=== PATIENT | male | born 1965 | race Caucasian/White ===

== ENCOUNTER 2016-04-14 15:08 | Emergency (ER) | payer BC, OTHER ==
[2016-04-14 15:17] VITALS: TEMP 98.3
[2016-04-14] MEDS ORDERED: ONDANSETRON 4 MG/2 ML VIAL IVP STA (16:22)
[2016-04-14] MEDS ORDERED: HYDROmorphone 1 MG/ML 1 ML SYRINGE IVP STA (16:22)
[2016-04-14] MEDS ORDERED: SODIUM CHLORIDE 0.9% 1,000 ML IV STA (16:22)
[2016-04-14] MEDS ORDERED: FAMOTIDINE 20 MG/2 ML VIAL IV STA (16:23)
[2016-04-14 17:15] LABS: Basophils % (A) 0 %; CH 34.5; CHCM 36.1; Eosinophils % (A) 0 %; HCT 46.8 % (39.0-53.0); HGB 16.4 gm/dL (13.0-17.5); Luc # (Auto) 0.25; Luc % (Auto) 2; Lymphocytes # (A) 2.1 k/uL (1.0-4.8); Lymphocytes % (A) 18 %; MCH 33.6 pg (25.0-35.0); MCV 96.1 fL (80.0-100.0); Mean Platelet Volume 8.2; Monocytes # (A) 0.7 k/uL (0-1.0); Monocytes % (A) 6 %; Neutrophils # (A) 8.4 k/uL (1.3-7.7); Neutrophils % (A) 73 %; RBC 4.87 m/uL (4.30-5.90); RDW 12.7 % (11.5-15.5); WBC 11.5 k/uL (3.8-10.6); WBC (Perox) 11.59
[2016-04-14 17:24] LABS: INR 1.1 (<1.1); Partial Thromboplastin Time 22.5 sec (22.0-30.0); Prothrombin Time 11.2 sec (9.0-12.0)
[2016-04-14 17:26] LABS: ALT 51 U/L (21-72); AST 23 U/L (17-59); Alkaline Phosphatase 95 U/L (38-126); Amylase 36 U/L (30-110); Anion Gap 13 mmol/L; Blood Urea Nitrogen 16 mg/dL (9-20); Carbon Dioxide 23 mmol/L (22-30); Chloride 103 mmol/L (98-107); Glucose 112 mg/dL (74-99); Non-African American GFR(MDRD) >60 (>60 ml/min/1.73 sqM); Potassium 4.4 mmol/L (3.5-5.1); Sodium 139 mmol/L (137-145); Total Bilirubin 1.3 mg/dL (0.2-1.3); Total Protein 7.6 g/dL (6.3-8.2)
[2016-04-14 17:52] LABS: Amorphous Sediment,Urine Rare /hpf; Appearance,Urine Cloudy (Clear); Bilirubin,Urine Negative (Negative); Glucose,Urine (UA) Negative (Negative); Ketones,Urine 2+ (Negative); Leukocyte Esterase,Urine Negative (Negative); Mucus,Urine Rare /hpf; Nitrite,Urine Negative (Negative); Particle Count 22645; Protein,Urine Negative (Negative); RBC,Urine 6 /hpf (0-5); Specific Gravity,Urine 1.012 (1.001-1.035); UA Billing (MACRO vs. MICRO) MICRO; Urobilinogen,Urine <2.0 mg/dL (<2.0); WBC,Urine 1 /hpf (0-5)
--- NOTE | 2016-04-14 17:54 | XR ---
EXAMINATION TYPE: XR abdomen acute w cxr DATE OF EXAM: 04/14/2016 5:41 PM COMPARISON: 10/21/2014 HISTORY: Abdominal pain and vomiting TECHNIQUE: Single view of the chest and 2 views of the abdomen are submitted. FINDINGS: Heart and mediastinum are normal. Lungs are clear of infiltrate. Bowel gas pattern is normal. There i s no sign of intestinal obstruction or pneumoperitoneum. Fecal pattern is normal. There is no sign of a mass. There are no pathologic calcifications over the kidneys.. IMPRESSION: Normal chest. Nonacute abdomen. No change compared to 10/21/2014.
--- NOTE | 2016-04-14 19:16 | ED ---
Abdominal Pain HPI - General Chief Complaint: Abdominal Pain Stated Complaint: Abd Pain Time Seen by Provider: 04/14/16 16:12 Source: patient Mode of arrival: ambulatory Limitations: no limitations - History of Present Illness Initial Comments: This 50-year-old white male since with a complaint of some nausea as well as vomiting. He states that he's had some abdominal pain in the upper mid abdomen. He's had decreased intake as he states that his symptoms are worse when he eats. Symptoms have been present for last 3 days. He denies any diarrhea or fever. He denies any urinary symptoms. He does not utilize any alcohol but does have occasional Motrin. He denies any history of gas esophageal reflux disorder, gastritis, or peptic ulcer disease. He denies any diarrhea but has had occasional constipation. No other complaints or modifying factors. He did have one incident last year which is somewhat similar and he was diagnosed with pancreatitis of unknown cause. - Related Data Previous Rx's Medication Instructions Recorded Famotidine [Pepcid] 20 mg PO BID #20 tablet 04/14/16 Ondansetron [Zofran ODT] 8 mg PO Q8HR PRN #12 tab 04/14/16 traMADol HCl [Ultram] 50 - 100 mg PO Q6H PRN #15 tab 04/14/16 Allergies Allergy/AdvReac Type Severity Reaction Status Date / Time No Known Allergies Allergy Verified 04/14/16 16:09 Review of Systems ROS Statement: Those systems with pertinent positive or pertinent negative responses have been documented in the HPI. ROS Other: All systems not noted in ROS Statement are negative. Past Medical History Past Medical History: No Reported History Additional Past Medical History / Comment(s): vertigo History of Any Multi-Drug Resistant Organisms: None Reported Past Surgical History: No Surgical Hx Reported, Tonsillectomy Past Anesthesia/Blood Transfusion Reactions: No Reported Reaction, Motion Sickness Past Psychological History: No Psychological Hx Reported Smoking Status: Current every day smoker Past Alcohol Use History: None Reported Past Drug Use History: None Reported - Past Family History Father Additional Family Medical History / Comment(s): Father has MS General Exam - General Exam Comments Initial Comments: GENERAL: The patient is well nourished and well hydrated. VITAL SIGNS: Heart rate, blood pressure, respiratory rate reviewed as recorded in nurse's notes. EYES: Pupils are round and reactive. Extraocular movements are intact. No conjunctival / lid redness or swelling. ENT: No external evidence of injury, swelling, or ecchymosis. Airway is patent. Throat is clear. NECK: Nontender. No swelling or evidence of injury. No subcutaneous emphysema. Trachea is midline. No thyroid mass. HEART: Regular rate and rhythm. Good peripheral pulses. LUNGS/CHEST: Breath sounds clear and equal bilaterally. No rales, rhonchi, or wheezes. No ecchymosis, subcutaneous emphysema, or tenderness. ABDOMEN: There is some mild tenderness in the midepigastric region. No palpable masses or organomegaly. No peritoneal signs. No abdominal wall swelling or ecchymosis. EXTREMITIES: No extremity tenderness. Normal muscle tone and function. No thoracolumbar tenderness. NEUROLOGIC: Sensation is grossly intact. Cranial nerve exam reveals face is symmetrical, tongue is midline, speech is clear. SKIN: No abrasions or ecchymosis is noted. No induration or masses noted. PSYCHIATRIC: Alert and oriented. Appropriate behavior and judgment. Limitations: no limitations Course Vital Signs 04/14/16 15:15 Temperature 98.3 F Pulse Rate 78 Respiratory 16 Rate Blood Pressure 125/73 O2 Sat by Pulse 96 Oximetry Medical Decision Making - Medical Decision Making The patient was seen and examined. All diagnostics were reviewed. He received fluid hydration, IV antiemetics, and IV Dilaudid. He receives some IV Pepcid as well. He is feeling remarkably improved on recheck. The acute abdominal series x-ray does not show any acute abnormalities. The laboratory is all essentially within normal limits. There is some ketones in the urine. It is felt as though symptoms certainly could be related to a viral gastritis. The possibility of a gastritis or peptic ulcer disease certainly is possible as well. Is felt as though he stable for discharge. Diet therapy is discussed. Return parameters are discussed. - Lab Data Result diagrams: 04/14/16 17:00 04/14/16 17:00 Lab Results 04/14/16 04/14/16 04/14/16 Range/Units 17:00 17:00 17:00 WBC 11.5 H (3.8-10.6) k/uL RBC 4.87 (4.30-5.90) m/uL Hgb 16.4 (13.0-17.5) gm/dL Hct 46.8 (39.0-53.0) % MCV 96.1 (80.0-100.0) fL MCH 33.6 (25.0-35.0) pg MCHC 35.0 (31.0-37.0) g/dL RDW 12.7 (11.5-15.5) % Plt Count 193 (150-450) k/uL Neutrophils % 73 % Lymphocytes % 18 % Monocytes % 6 % Eosinophils % 0 % Basophils % 0 % Neutrophils # 8.4 H (1.3-7.7) k/uL Lymphocytes # 2.1 (1.0-4.8) k/uL Monocytes # 0.7 (0-1.0) k/uL Eosinophils # 0.0 (0-0.7) k/uL Basophils # 0.0 (0-0.2) k/uL PT 11.2 (9.0-12.0) sec INR 1.1 (<1.1) APTT 22.5 (22.0-30.0) sec Sodium 139 (137-145) mmol/L Potassium 4.4 (3.5-5.1) mmol/L Chloride 103 (98-107) mmol/L Carbon Dioxide 23 (22-30) mmol/L Anion Gap 13 mmol/L BUN 16 (9-20) mg/dL Creatinine 0.81 (0.66-1.25) mg/dL Est GFR (MDRD) Af Amer >60 (>60 ml/min/1.73 sqM) Est GFR (MDRD) Non-Af >60 (>60 ml/min/1.73 sqM) Glucose 112 H (74-99) mg/dL Calcium 10.0 (8.4-10.2) mg/dL Total Bilirubin 1.3 (0.2-1.3) mg/dL AST 23 (17-59) U/L ALT 51 (21-72) U/L Alkaline Phosphatase 95 (38-126) U/L Total Protein 7.6 (6.3-8.2) g/dL Albumin 4.6 (3.5-5.0) g/dL Amylase 36 (30-110) U/L Lipase 26 (23-300) U/L Urine Color Urine Appearance (Clear) Urine pH (5.0-8.0) Ur Specific [place] (1.001-1.035) Urine Protein (Negative) Urine Glucose (UA) (Negative) Urine Ketones (Negative) Urine Blood (Negative) Urine Nitrate (Negative) Urine Bilirubin (Negative) Urine Urobilinogen (<2.0) mg/dL Ur Leukocyte Esterase (Negative) Urine RBC (0-5) /hpf Urine WBC (0-5) /hpf Amorphous Sediment (None) /hpf Urine Mucus (None) /hpf 04/14/16 Range/Units 17:30 WBC (3.8-10.6) k/uL RBC (4.30-5.90) m/uL Hgb (13.0-17.5) gm/dL Hct (39.0-53.0) % MCV (80.0-100.0) fL MCH (25.0-35.0) pg MCHC (31.0-37.0) g/dL RDW (11.5-15.5) % Plt Count (150-450) k/uL Neutrophils % % Lymphocytes % % Monocytes % % Eosinophils % % Basophils % % Neutrophils # (1.3-7.7) k/uL Lymphocytes # (1.0-4.8) k/uL Monocytes # (0-1.0) k/uL Eosinophils # (0-0.7) k/uL Basophils # (0-0.2) k/uL PT (9.0-12.0) sec INR (<1.1) APTT (22.0-30.0) sec Sodium (137-145) mmol/L Potassium (3.5-5.1) mmol/L Chloride (98-107) mmol/L Carbon Dioxide (22-30) mmol/L Anion Gap mmol/L BUN (9-20) mg/dL Creatinine (0.66-1.25) mg/dL Est GFR (MDRD) Af Amer (>60 ml/min/1.73 sqM) Est GFR (MDRD) Non-Af (>60 ml/min/1.73 sqM) Glucose (74-99) mg/dL Calcium (8.4-10.2) mg/dL Total Bilirubin (0.2-1.3) mg/dL AST (17-59) U/L ALT (21-72) U/L Alkaline Phosphatase (38-126) U/L Total Protein (6.3-8.2) g/dL Albumin (3.5-5.0) g/dL Amylase (30-110) U/L Lipase (23-300) U/L Urine Color Yellow Urine Appearance Cloudy (Clear) Urine pH 7.0 (5.0-8.0) Ur Specific [place] 1.012 (1.001-1.035) Urine Protein Negative (Negative) Urine Glucose (UA) Negative (Negative) Urine Ketones 2+ H (Negative) Urine Blood Small H (Negative) Urine Nitrate Negative (Negative) Urine Bilirubin Negative (Negative) Urine Urobilinogen <2.0 (<2.0) mg/dL Ur Leukocyte Esterase Negative (Negative) Urine RBC 6 H (0-5) /hpf Urine WBC 1 (0-5) /hpf Amorphous Sediment Rare H (None) /hpf Urine Mucus Rare H (None) /hpf Disposition Clinical Impression: Abdominal pain, Nausea and vomiting, Viral gastritis, Dehydration Disposition: HOME SELF-CARE Condition: Good Instructions: Abdominal Pain (ED), Dehydration (ED), Acute Nausea and Vomiting (ED) Additional Instructions: Please avoid any Motrin in the future. You may utilize Tylenol safely. Prescriptions: Famotidine [Pepcid] 20 mg PO BID #20 tablet Ondansetron [Zofran ODT] 8 mg PO Q8HR PRN #12 tab PRN Reason: Nausea traMADol HCl [Ultram] 50 - 100 mg PO Q6H PRN #15 tab PRN Reason: Pain Referrals: None,Stated [Primary Care Provider] - 1-2 days Time of Disposition: 19:15
[2016-04-14 19:45] VITALS: BP 117/66; PULSE 77; RESP 18
== END 2016-04-14 19:48 | disposition home or self-care (01) ==
LOC: EC 15:08
DX: A08.4 Viral intestinal infection, unspecified (principal); E86.0 Dehydration; F17.200 Nicotine dependence, unspecified, uncomplicated
CPT/HCPCS: 99284; 96374; 96375; 96361; 36415; 93005; 80053; 82150; 83690; 85025; 85610; 85730; 81001; 74022; J2405; J1170

== ENCOUNTER 2016-11-27 18:24 | Emergency (ER) | payer BC, OTHER ==
[2016-11-27 18:44] VITALS: RESP 18
[2016-11-27] MEDS ORDERED: HYDROmorphone 1 MG/ML 1 ML SYRINGE IVP STA (19:33)
[2016-11-27] MEDS ORDERED: PANTOPRAZOLE 40 MG/10 ML VIAL IVP STA (19:33)
[2016-11-27] MEDS ORDERED: METOCLOPRAMIDE 5 MG/ML 2 ML VIAL IVP STA (19:33)
[2016-11-27] MEDS ORDERED: SODIUM CHLORIDE 0.9% 1,000 ML IV STA (19:33)
--- NOTE | 2016-11-27 19:40 | ED ---
General Adult HPI - General Source: patient, RN notes reviewed, old records reviewed Mode of arrival: ambulatory Limitations: no limitations <Charli Rodríguez - Last Filed: 11/27/16 19:35> <Juan Diego Swain - Last Filed: 11/27/16 21:57> - General Chief complaint: Abdominal Pain Stated complaint: abdominal pain/vomiting Time Seen by Provider: 11/27/16 19:23 - History of Present Illness Initial comments: If complaint history of present illness this is a 51-year-old male to complaint of epigastric pain for 3 days. Nausea vomiting once today no blood in the vomit no bowel habit problems. No change in bowel habits no dark stool. (Charli Rodríguez) - Related Data Home Medications Medication Instructions Recorded Confirmed No Known Home Medications [No 11/27/16 11/27/16 Known Home Medications] Allergies Allergy/AdvReac Type Severity Reaction Status Date / Time No Known Allergies Allergy Verified 11/27/16 19:45 Review of Systems ROS Other: All systems not noted in ROS Statement are negative. <Charli Rodríguez - Last Filed: 11/27/16 19:35> ROS Other: All systems not noted in ROS Statement are negative. <Juan Diego Swain - Last Filed: 11/27/16 21:57> ROS Statement: Those systems with pertinent positive or pertinent negative responses have been documented in the HPI. Review of systems. No headache or visual acuity changes no chest pain shortness of breath. The pain comes and goes the epigastric region. Patient has had one history of pancreatitis of unknown cause. Also gastritis and several occasions. No back pain no significant change in appetite. Eating sometimes helps eating some placement worse. No neuro deficits. All systems are reviewed. Past medical problems pancreatitis and viral gastritis. Surgeries tonsillectomy. Family history no cancers. Father at MS. Patient denies ALLERGIES she does smoke strongly encouraged to stop denies alcohol use. (Charli Rodríguez) Past Medical History Past Medical History: No Reported History Additional Past Medical History / Comment(s): vertigo pancreatitis History of Any Multi-Drug Resistant Organisms: None Reported Past Surgical History: Tonsillectomy Past Anesthesia/Blood Transfusion Reactions: No Reported Reaction, Motion Sickness Past Psychological History: No Psychological Hx Reported Smoking Status: Current every day smoker Past Alcohol Use History: None Reported Past Drug Use History: None Reported - Past Family History Father Additional Family Medical History / Comment(s): Father has MS <Charli Rodríguez - Last Filed: 11/27/16 19:35> General Exam Limitations: no limitations <Charli Rodríguez - Last Filed: 11/27/16 19:35> <Juan Diego Swain - Last Filed: 11/27/16 21:57> - General Exam Comments Initial Comments: General: The patient is awake and alert, patient has on-again off-again epigastric pain. Vital signs temp 99.5 pulse 70 respiratory rate 18 pulse ox 98% room air blood pressure 122/75 Eye: Pupils are equal, round and reactive to light, extra-ocular movements are intact ; there is normal conjunctiva bilaterally. No signs of icterus. Ears, nose, mouth and throat: There are moist mucous membranes and no oral lesions. Neck: The neck is supple, there is no tenderness, no anterior cervical lymphadenopathy , thyroid not enlarged. Cardiovascular: There is a regular rate and rhythm. No murmur, rub or gallop is appreciated. Respiratory: Lungs are clear to auscultation, respirations are non-labored, breath sounds are equal. No wheezes, stridor, rales, or rhonchi. Gastrointestinal: Abdomen: Mildly tender to deep palpation no rebound or referred pain negative Goel sign. Normal active bowel sounds. No masses no organomegaly. Back: There is no tenderness to palpation in the midline. There is no obvious deformity. No rashes noted. Musculoskeletal: Normal ROM, no tenderness, There is no pedal edema. There is no calf tenderness or swelling. Sensation intact. Pulses equal bilaterally 2+. Neurological: No neuro deficits. Skin is warm and dry and no rashes or lesions are noted. (MarcosCharli monroy) Medical Decision Making <Charli Rodríguez - Last Filed: 11/27/16 19:35> - Lab Data Result diagrams: 11/27/16 20:23 11/27/16 20:23 - Radiology Data Radiology results: image reviewed (Abdominal x-ray shows no acute process) <Juan Diego Swain - Last Filed: 11/27/16 21:57> - Medical Decision Making Patient reexamined by myself, Dr. Swain. Patient resting comfortably in bed and symptom-free. Abdomen is soft and nontender. Patient is updated on results. Patient is also updated and limitations of tests provided. Patient offered computed tomography scan however refuses. Patient is agreeable to return if symptoms worsen. Patient states he has had similar symptoms previously associated with gastritis. (Juan Diego Swain) - Lab Data Lab Results 11/27/16 11/27/16 11/27/16 Range/Units 20:23 20:23 20:23 WBC 9.9 (3.8-10.6) k/uL RBC 4.70 (4.30-5.90) m/uL Hgb 16.1 (13.0-17.5) gm/dL Hct 46.6 (39.0-53.0) % MCV 99.2 (80.0-100.0) fL MCH 34.2 (25.0-35.0) pg MCHC 34.5 (31.0-37.0) g/dL RDW 13.4 (11.5-15.5) % Plt Count 186 (150-450) k/uL Neutrophils % 71 % Lymphocytes % 21 % Monocytes % 6 % Eosinophils % 0 % Basophils % 0 % Neutrophils # 7.0 (1.3-7.7) k/uL Lymphocytes # 2.1 (1.0-4.8) k/uL Monocytes # 0.6 (0-1.0) k/uL Eosinophils # 0.0 (0-0.7) k/uL Basophils # 0.0 (0-0.2) k/uL Sodium 137 (137-145) mmol/L Potassium 4.1 (3.5-5.1) mmol/L Chloride 103 (98-107) mmol/L Carbon Dioxide 28 (22-30) mmol/L Anion Gap 6 mmol/L BUN 8 L (9-20) mg/dL Creatinine 0.88 (0.66-1.25) mg/dL Est GFR (MDRD) Af Amer >60 (>60 ml/min/1.73 sqM) Est GFR (MDRD) Non-Af >60 (>60 ml/min/1.73 sqM) Glucose 107 H (74-99) mg/dL Plasma Lactic Acid Saeed 0.9 (0.7-2.0) mmol/L Calcium 9.7 (8.4-10.2) mg/dL Total Bilirubin 0.9 (0.2-1.3) mg/dL AST 17 (17-59) U/L ALT 25 (21-72) U/L Alkaline Phosphatase 90 (38-126) U/L Total Protein 7.0 (6.3-8.2) g/dL Albumin 4.0 (3.5-5.0) g/dL Amylase <30 L (30-110) U/L Lipase 25 (23-300) U/L Urine Color Urine Appearance (Clear) Urine pH (5.0-8.0) Ur Specific [place] (1.001-1.035) Urine Protein (Negative) Urine Glucose (UA) (Negative) Urine Ketones (Negative) Urine Blood (Negative) Urine Nitrite (Negative) Urine Bilirubin (Negative) Urine Urobilinogen (<2.0) mg/dL Ur Leukocyte Esterase (Negative) Urine RBC (0-5) /hpf Amorphous Sediment (None) /hpf Urine Bacteria (None) /hpf Urine Yeast (Budding) (None) /hpf 11/27/16 Range/Units 21:08 WBC (3.8-10.6) k/uL RBC (4.30-5.90) m/uL Hgb (13.0-17.5) gm/dL Hct (39.0-53.0) % MCV (80.0-100.0) fL MCH (25.0-35.0) pg MCHC (31.0-37.0) g/dL RDW (11.5-15.5) % Plt Count (150-450) k/uL Neutrophils % % Lymphocytes % % Monocytes % % Eosinophils % % Basophils % % Neutrophils # (1.3-7.7) k/uL Lymphocytes # (1.0-4.8) k/uL Monocytes # (0-1.0) k/uL Eosinophils # (0-0.7) k/uL Basophils # (0-0.2) k/uL Sodium (137-145) mmol/L Potassium (3.5-5.1) mmol/L Chloride (98-107) mmol/L Carbon Dioxide (22-30) mmol/L Anion Gap mmol/L BUN (9-20) mg/dL Creatinine (0.66-1.25) mg/dL Est GFR (MDRD) Af Amer (>60 ml/min/1.73 sqM) Est GFR (MDRD) Non-Af (>60 ml/min/1.73 sqM) Glucose (74-99) mg/dL Plasma Lactic Acid Saeed (0.7-2.0) mmol/L Calcium (8.4-10.2) mg/dL Total Bilirubin (0.2-1.3) mg/dL AST (17-59) U/L ALT (21-72) U/L Alkaline Phosphatase (38-126) U/L Total Protein (6.3-8.2) g/dL Albumin (3.5-5.0) g/dL Amylase (30-110) U/L Lipase (23-300) U/L Urine Color Yellow Urine Appearance Cloudy (Clear) Urine pH 7.0 (5.0-8.0) Ur Specific [place] 1.006 (1.001-1.035) Urine Protein Negative (Negative) Urine Glucose (UA) Negative (Negative) Urine Ketones Negative (Negative) Urine Blood Trace H (Negative) Urine Nitrite Negative (Negative) Urine Bilirubin Negative (Negative) Urine Urobilinogen <2.0 (<2.0) mg/dL Ur Leukocyte Esterase Negative (Negative) Urine RBC 4 (0-5) /hpf Amorphous Sediment Rare H (None) /hpf Urine Bacteria Rare H (None) /hpf Urine Yeast (Budding) Few H (None) /hpf Disposition <Charli Rodríguez - Last Filed: 11/27/16 19:35> Time of Disposition: 21:57 <Juan Diego Swain - Last Filed: 11/27/16 21:57> Clinical Impression: Abdominal pain Disposition: HOME SELF-CARE Condition: Stable Instructions: Abdominal Pain (ED) Additional Instructions: Please follow-up with primary care physician in the beginning of the week. Return for fever, increased pain, vomiting, worsening or changing symptoms or other concerns. Take [id number] Pepcid Referrals: Rosi Delatorre MD [STAFF PHYSICIAN] - 1-2 days
[2016-11-27 20:35] LABS: Basophils % (A) 0 %; CH 35.1; CHCM 35.6; Eosinophils % (A) 0 %; HCT 46.6 % (39.0-53.0); HDW 2.33; HGB 16.1 gm/dL (13.0-17.5); Luc # (Auto) 0.17; Luc % (Auto) 2; Lymphocytes # (A) 2.1 k/uL (1.0-4.8); Lymphocytes % (A) 21 %; MCH 34.2 pg (25.0-35.0); MCHC 34.5 g/dL (31.0-37.0); MCV 99.2 fL (80.0-100.0); Mean Platelet Volume 8.6; Monocytes # (A) 0.6 k/uL (0-1.0); Monocytes % (A) 6 %; Neutrophils % (A) 71 %; RDW 13.4 % (11.5-15.5); WBC 9.9 k/uL (3.8-10.6); WBC (Perox) 9.46
[2016-11-27 20:48] LABS: ALT 25 U/L (21-72); AST 17 U/L (17-59); Alkaline Phosphatase 90 U/L (38-126); Amylase <30 U/L (30-110); Anion Gap 6 mmol/L; Blood Urea Nitrogen 8 mg/dL (9-20); Calcium 9.7 mg/dL (8.4-10.2); Carbon Dioxide 28 mmol/L (22-30); Chloride 103 mmol/L (98-107); Glucose 107 mg/dL (74-99); Non-African American GFR(MDRD) >60 (>60 ml/min/1.73 sqM); Potassium 4.1 mmol/L (3.5-5.1); Sodium 137 mmol/L (137-145); Total Bilirubin 0.9 mg/dL (0.2-1.3)
--- NOTE | 2016-11-27 20:51 | XR ---
EXAMINATION TYPE: XR abdomen 2V DATE OF EXAM: 11/27/2016 COMPARISON: 04/13/2015 HISTORY: Right upper quadrant pain TECHNIQUE: 3 views FINDINGS: There is no sign of intestinal obstruction or pneumoperitoneum. Fecal pattern is normal. Suri ng bases are clear. There are no pathologic calcifications over the kidneys. IMPRESSION: Nonacute abdomen. No change.
[2016-11-27 21:23] LABS: Amorphous Sediment,Urine Rare /hpf; Appearance,Urine Cloudy (Clear); Bacteria,Urine Rare /hpf; Bilirubin,Urine Negative (Negative); Glucose,Urine (UA) Negative (Negative); Ketones,Urine Negative (Negative); Leukocyte Esterase,Urine Negative (Negative); Nitrite,Urine Negative (Negative); Particle Count 11047; Protein,Urine Negative (Negative); RBC,Urine 4 /hpf (0-5); Specific Gravity,Urine 1.006 (1.001-1.035); UA Billing (MACRO vs. MICRO) MICRO; Urobilinogen,Urine <2.0 mg/dL (<2.0)
[2016-11-27 22:10] VITALS: BP 116/68; PULSE 66; TEMP 98.1
== END 2016-11-27 22:18 | disposition home or self-care (01) ==
LOC: EC 18:24
DX: R10.13 Epigastric pain (principal); R11.2 Nausea with vomiting, unspecified; F17.200 Nicotine dependence, unspecified, uncomplicated
CPT/HCPCS: 36415; 80053; 82150; 83605; 83690; 85025; 81001; 87086; 74020; 99284; 96374; 96375 ×2; 96361 ×2; J2765; J1170; C9113

== ENCOUNTER 2017-11-29 05:58 | Emergency (ER) | payer BC, OTHER ==
[2017-11-29 06:05] VITALS: BP 128/83; PULSE 61; RESP 18; TEMP 98
--- NOTE | 2017-11-29 06:14 | ED ---
ENT HPI - General Chief complaint: ENT Stated complaint: ear ache Time Seen by Provider: 11/29/17 06:06 Source: patient, RN notes reviewed Mode of arrival: ambulatory Limitations: no limitations - History of Present Illness Initial comments: 52-year-old male presents emergency Department chief complaint of ear pain, mild dizziness. Patient states he suffered with ear problems and vertigo. Patient states it started after working on his truck last night when he had to lay underneath of it. Patient states that he has no symptoms other than when he moves he states he gets very mild dizziness he states is exactly what he had in the past. Patient complains of mild pressure in his left ear pain when he puts his earplugs in his right ear. Patient has no headache no blurred vision no focal deficits, nausea, vomiting, diarrhea constipation. He denies any chest pain or shortness of breath. Patient states he was able drive himself to emergency department with no difficulty he states he more notices it when he leans forward. Patient has mild sinus congestion. - Related Data Previous Rx's Medication Instructions Recorded Amoxicillin 875 mg PO Q12HR #14 tablet 11/29/17 Meclizine [Antivert] 25 mg PO TID PRN #15 tab 11/29/17 Allergies Allergy/AdvReac Type Severity Reaction Status Date / Time No Known Allergies Allergy Verified 11/27/16 19:45 Review of Systems ROS Statement: Those systems with pertinent positive or pertinent negative responses have been documented in the HPI. ROS Other: All systems not noted in ROS Statement are negative. Past Medical History Past Medical History: No Reported History Additional Past Medical History / Comment(s): vertigo pancreatitis History of Any Multi-Drug Resistant Organisms: None Reported Past Surgical History: Tonsillectomy Past Anesthesia/Blood Transfusion Reactions: No Reported Reaction, Motion Sickness Past Psychological History: No Psychological Hx Reported Smoking Status: Current every day smoker Past Alcohol Use History: None Reported Past Drug Use History: None Reported - Past Family History Father Additional Family Medical History / Comment(s): Father has MS General Exam Limitations: no limitations General appearance: alert, in no apparent distress Head exam: Present: atraumatic, normocephalic, normal inspection Eye exam: Present: normal appearance, PERRL, EOMI. Absent: scleral icterus, conjunctival injection, periorbital swelling ENT exam: Present: normal oropharynx, mucous membranes moist, normal external ear exam. Absent: TM's normal bilaterally (Mild erythema on the left, mild fluid noted on the right) Neck exam: Present: normal inspection, full ROM. Absent: tenderness, meningismus, lymphadenopathy Respiratory exam: Present: normal lung sounds bilaterally. Absent: respiratory distress, wheezes, rales, rhonchi, stridor Cardiovascular Exam: Present: regular rate, normal rhythm, normal heart sounds. Absent: systolic murmur, diastolic murmur, rubs, gallop, clicks Neurological exam: Present: alert, oriented X3, CN II-XII intact, reflexes normal, other (Finger to nose intact bilaterally without shooting.). Absent: motor sensory deficit Skin exam: Present: warm, dry, intact, normal color. Absent: rash Course Vital Signs 11/29/17 06:01 Temperature 98.0 F Pulse Rate 61 Respiratory 18 Rate Blood Pressure 128/83 O2 Sat by Pulse 98 Oximetry Medical Decision Making - Medical Decision Making 52-year-old male presents emergency from for ear pain and mild dizziness. Patient does have mild otitis media on the left he does have some fluid noted. Patient is exhibiting mild vertigo symptoms in which he has suffered in the past. I did offer further workup secondary to the dizziness patient declines lab work, EKG. Patient will be started on oxacillin, Antivert. He is advised to follow-up with his PCP in 24 hours and return for any worsening symptoms. Disposition Clinical Impression: Otitis media, Vertigo Disposition: HOME SELF-CARE Condition: Stable Instructions: Earache (ED), Vertigo (ED) Additional Instructions: Please return to the Emergency Department if symptoms worsen or any other concerns. Prescriptions: Amoxicillin 875 mg PO Q12HR #14 tablet Meclizine [Antivert] 25 mg PO TID PRN #15 tab PRN Reason: Vertigo Is patient prescribed a controlled substance at d/c from ED?: No Referrals: Rosi Delatorre MD [STAFF PHYSICIAN] - 1-2 days Time of Disposition: 06:14
== END 2017-11-29 06:22 | disposition home or self-care (01) ==
LOC: EC 05:58
DX: H66.92 Otitis media, unspecified, left ear (principal); R42 Dizziness and giddiness; F17.200 Nicotine dependence, unspecified, uncomplicated
CPT/HCPCS: 99282

== ENCOUNTER 2020-08-30 07:02 | Emergency (ER) | payer BC, OTHER ==
[2020-08-30 07:08] VITALS: RESP 18
[2020-08-30] MEDS ORDERED: ONDANSETRON 4 MG/2 ML VIAL IVP STA (07:20)
[2020-08-30] MEDS ORDERED: KETOROLAC 15 MG/ML 1 ML VIAL IVP STA (07:20)
[2020-08-30] MEDS ORDERED: SODIUM CHLORIDE 0.9% 1,000 ML IV STA ×2 (07:20)
--- NOTE | 2020-08-30 07:24 | ED ---
Abdominal Pain HPI - General Chief Complaint: Abdominal Pain Stated Complaint: Abd pain Time Seen by Provider: 08/30/20 07:10 Source: patient, RN notes reviewed Mode of arrival: ambulatory Limitations: no limitations - History of Present Illness Initial Comments: This is a 54-year-old male with a history he believes pancreatitis in the past he smokes but does not drink alcohol who states he's had 3-4 days of upper abdominal pain dull in nature -10/12 severity fairly constant with decreased oral intake background nausea no vomiting. He denies any shortness of breath pain does seem to get worse somewhat when he eats he states. No prior history of surgeries on his abdomen no family history of gallbladder disease or ulcers. It. He has noticed decreased urine output is darker. Other complaints or modifying factors MD Complaint: abdominal pain - Related Data Previous Rx's Medication Instructions Recorded Pantoprazole Sodium [Protonix] 40 mg PO DAILY #14 tablet. 08/30/20 Allergies Allergy/AdvReac Type Severity Reaction Status Date / Time No Known Allergies Allergy Verified 08/30/20 08:24 Review of Systems ROS Statement: Those systems with pertinent positive or pertinent negative responses have been documented in the HPI. ROS Other: All systems not noted in ROS Statement are negative. Past Medical History Past Medical History: No Reported History Additional Past Medical History / Comment(s): vertigo pancreatitis History of Any Multi-Drug Resistant Organisms: None Reported Past Surgical History: Tonsillectomy Past Anesthesia/Blood Transfusion Reactions: No Reported Reaction, Motion Sickness Past Psychological History: No Psychological Hx Reported Smoking Status: Current every day smoker Past Alcohol Use History: None Reported Past Drug Use History: None Reported - Past Family History Father Additional Family Medical History / Comment(s): Father has MS General Exam - General Exam Comments Initial Comments: This is a well-developed sec appearing male who is awake and oriented 3 Limitations: no limitations General appearance: alert, in no apparent distress Head exam: Present: atraumatic, normocephalic, normal inspection Eye exam: Present: normal appearance, PERRL, EOMI. Absent: scleral icterus, conjunctival injection, periorbital swelling ENT exam: Present: mucous membranes dry Neck exam: Present: normal inspection. Absent: tenderness, meningismus, lymphadenopathy Respiratory exam: Present: normal lung sounds bilaterally. Absent: respiratory distress, wheezes, rales, rhonchi, stridor Cardiovascular Exam: Present: regular rate, normal rhythm, normal heart sounds. Absent: systolic murmur, diastolic murmur, rubs, gallop, clicks GI/Abdominal exam: Present: soft, tenderness (Right upper quadrant and epigastric tenderness palpation no guarding rebound masses or bruits), normal bowel sounds. Absent: distended, guarding, rebound, rigid Rectal exam: Present: deferred Extremities exam: Present: normal inspection, full ROM, normal capillary refill. Absent: tenderness, pedal edema, joint swelling, calf tenderness Back exam: Present: normal inspection Neurological exam: Present: alert, oriented X3, CN II-XII intact Psychiatric exam: Present: normal affect, normal mood Skin exam: Present: warm, dry, intact, normal color. Absent: rash Course Vital Signs 08/30/20 07:03 Temperature 97.8 F Pulse Rate 61 Respiratory 18 Rate Blood Pressure 155/89 O2 Sat by Pulse 99 Oximetry Medical Decision Making - Medical Decision Making I did discuss the findings with the patient is feeling improved the presentation consistent with a gastritis be placed on Protonix he is also to be referred to GI. He does not have a primary care doctor did suggest he establish 1. - Lab Data Result diagrams: 08/30/20 07:41 08/30/20 07:41 Lab Results 08/30/20 08/30/20 08/30/20 Range/Units 07:41 07:41 07:41 WBC 8.1 (3.8-10.6) k/uL RBC 4.69 (4.30-5.90) m/uL Hgb 16.3 (13.0-17.5) gm/dL Hct 46.0 (39.0-53.0) % MCV 98.0 (80.0-100.0) fL MCH 34.7 (25.0-35.0) pg MCHC 35.4 (31.0-37.0) g/dL RDW 12.3 (11.5-15.5) % Plt Count 180 (150-450) k/uL MPV 7.7 Neutrophils % 71 % Lymphocytes % 20 % Monocytes % 6 % Eosinophils % 1 % Basophils % 1 % Neutrophils # 5.8 (1.3-7.7) k/uL Lymphocytes # 1.6 (1.0-4.8) k/uL Monocytes # 0.5 (0-1.0) k/uL Eosinophils # 0.0 (0-0.7) k/uL Basophils # 0.0 (0-0.2) k/uL Sodium 136 L (137-145) mmol/L Potassium 4.2 (3.5-5.1) mmol/L Chloride 104 (98-107) mmol/L Carbon Dioxide 27 (22-30) mmol/L Anion Gap 5 mmol/L BUN 10 (9-20) mg/dL Creatinine 0.78 (0.66-1.25) mg/dL Est GFR (CKD-EPI)AfAm >90 (>60 ml/min/1.73 sqM) Est GFR (CKD-EPI)NonAf >90 (>60 ml/min/1.73 sqM) Glucose 119 H (74-99) mg/dL Plasma Lactic Acid Saeed (0.7-2.0) mmol/L Calcium 9.9 (8.4-10.2) mg/dL Total Bilirubin 1.0 (0.2-1.3) mg/dL AST 18 (17-59) U/L ALT 10 (4-49) U/L Alkaline Phosphatase 90 (38-126) U/L Creatine Kinase 54 L (55-170) U/L Troponin I (0.000-0.034) ng/mL Total Protein 7.2 (6.3-8.2) g/dL Albumin 4.3 (3.5-5.0) g/dL Amylase 39 (30-110) U/L Lipase 29 (23-300) U/L Urine Color Yellow Urine Appearance Clear (Clear) Urine pH 6.0 (5.0-8.0) Ur Specific [place] 1.015 (1.001-1.035) Urine Protein Negative (Negative) Urine Glucose (UA) Negative (Negative) Urine Ketones Negative (Negative) Urine Blood Moderate H (Negative) Urine Nitrite Negative (Negative) Urine Bilirubin Negative (Negative) Urine Urobilinogen <2.0 (<2.0) mg/dL Ur Leukocyte Esterase Negative (Negative) Urine RBC 13 H (0-5) /hpf Urine WBC 1 (0-5) /hpf Urine Mucus Few H (None) /hpf Serum Alcohol <10 mg/dL 08/30/20 08/30/20 Range/Units 07:41 07:41 WBC (3.8-10.6) k/uL RBC (4.30-5.90) m/uL Hgb (13.0-17.5) gm/dL Hct (39.0-53.0) % MCV (80.0-100.0) fL MCH (25.0-35.0) pg MCHC (31.0-37.0) g/dL RDW (11.5-15.5) % Plt Count (150-450) k/uL MPV Neutrophils % % Lymphocytes % % Monocytes % % Eosinophils % % Basophils % % Neutrophils # (1.3-7.7) k/uL Lymphocytes # (1.0-4.8) k/uL Monocytes # (0-1.0) k/uL Eosinophils # (0-0.7) k/uL Basophils # (0-0.2) k/uL Sodium (137-145) mmol/L Potassium (3.5-5.1) mmol/L Chloride (98-107) mmol/L Carbon Dioxide (22-30) mmol/L Anion Gap mmol/L BUN (9-20) mg/dL Creatinine (0.66-1.25) mg/dL Est GFR (CKD-EPI)AfAm (>60 ml/min/1.73 sqM) Est GFR (CKD-EPI)NonAf (>60 ml/min/1.73 sqM) Glucose (74-99) mg/dL Plasma Lactic Acid Saeed 0.9 (0.7-2.0) mmol/L Calcium (8.4-10.2) mg/dL Total Bilirubin (0.2-1.3) mg/dL AST (17-59) U/L ALT (4-49) U/L Alkaline Phosphatase (38-126) U/L Creatine Kinase (55-170) U/L Troponin I <0.012 (0.000-0.034) ng/mL Total Protein (6.3-8.2) g/dL Albumin (3.5-5.0) g/dL Amylase (30-110) U/L Lipase (23-300) U/L Urine Color Urine Appearance (Clear) Urine pH (5.0-8.0) Ur Specific [place] (1.001-1.035) Urine Protein (Negative) Urine Glucose (UA) (Negative) Urine Ketones (Negative) Urine Blood (Negative) Urine Nitrite (Negative) Urine Bilirubin (Negative) Urine Urobilinogen (<2.0) mg/dL Ur Leukocyte Esterase (Negative) Urine RBC (0-5) /hpf Urine WBC (0-5) /hpf Urine Mucus (None) /hpf Serum Alcohol mg/dL - Radiology Data Radiology results: report reviewed, image reviewed Disposition Clinical Impression: Abdominal pain, Gastritis, Dehydration Disposition: HOME SELF-CARE Condition: Good Instructions (If sedation given, give patient instructions): Abdominal Pain (ED), Gastritis (ED) Prescriptions: Pantoprazole Sodium [Protonix] 40 mg PO DAILY #14 tablet.dr Is patient prescribed a controlled substance at d/c from ED?: No Referrals: None,Stated [Primary Care Provider] - 1-2 days Ofe Bell MD [STAFF PHYSICIAN] - 1-2 days
[2020-08-30 07:53] LABS: Basophils % (A) 1 %; Eosinophils % (A) 1 %; HGB 16.3 gm/dL (13.0-17.5); Lymphocytes # (A) 1.6 k/uL (1.0-4.8); Lymphocytes % (A) 20 %; MCH 34.7 pg (25.0-35.0); MCHC 35.4 g/dL (31.0-37.0); Mean Platelet Volume 7.7; Monocytes # (A) 0.5 k/uL (0-1.0); Monocytes % (A) 6 %; Neutrophils # (A) 5.8 k/uL (1.3-7.7); Neutrophils % (A) 71 %; Platelet Count 180 k/uL (150-450); RBC 4.69 m/uL (4.30-5.90); RDW 12.3 % (11.5-15.5); WBC 8.1 k/uL (3.8-10.6)
[2020-08-30 08:08] LABS: Appearance,Urine Clear (Clear); Bilirubin,Urine Negative (Negative); Blood,Urine Moderate (Negative); Color,Urine Yellow; Glucose,Urine (UA) Negative (Negative); Ketones,Urine Negative (Negative); Leukocyte Esterase,Urine Negative (Negative); Mucus,Urine Few /hpf; Nitrite,Urine Negative (Negative); Protein,Urine Negative (Negative); RBC,Urine 13 /hpf (0-5); Specific Gravity,Urine 1.015 (1.001-1.035); Urobilinogen,Urine <2.0 mg/dL (<2.0); WBC,Urine 1 /hpf (0-5)
[2020-08-30 08:14] LABS: ALT 10 U/L (4-49); AST 18 U/L (17-59); African American GFR (CKD) >90 (>60 ml/min/1.73 sqM); Albumin 4.3 g/dL (3.5-5.0); Alcohol <10 mg/dL; Alkaline Phosphatase 90 U/L (38-126); Amylase 39 U/L (30-110); Anion Gap 5 mmol/L; Blood Urea Nitrogen 10 mg/dL (9-20); Calcium 9.9 mg/dL (8.4-10.2); Carbon Dioxide 27 mmol/L (22-30); Chloride 104 mmol/L (98-107); Creatine Kinase 54 U/L (55-170); Glucose 119 mg/dL (74-99); Lipase 29 U/L (23-300); Non-African American GFR(CKD) >90 (>60 ml/min/1.73 sqM); Potassium 4.2 mmol/L (3.5-5.1); Sodium 136 mmol/L (137-145); Total Protein 7.2 g/dL (6.3-8.2)
--- NOTE | 2020-08-30 08:26 | XR ---
EXAMINATION TYPE: XR KUB DATE OF EXAM: 08/30/2020 7:59 AM CLINICAL HISTORY: Pain with nausea and vomiting TECHNIQUE: Two Upright KUB images of the abdomen are obtained. COMPARISON: CT abdomen and pelvis April 13, 2015. FINDINGS: Scattered gas is seen in non-distended stomach and small bowel loops. Gas and fecal materia l is seen in non-distended colon. There is no visceromegaly, pneumoperitoneum, or abnormal calcificat ion appreciated. The lung bases are clear and the osseous structures are intact. IMPRESSION: Overall nonobstructive bowel gas pattern remains present.
[2020-08-30] MEDS ORDERED: FAMOTIDINE 20 MG/2 ML VIAL IV STA (08:47)
[2020-08-30] MEDS ORDERED: MAG HYDROX/AL HYDROX/SIMETH 30 ML, HYOSCYAMINE ELIXIR 10 ML PO STA ×2 (08:47)
[2020-08-30 10:52] VITALS: BP 114/71; PULSE 51; TEMP 98.3
== END 2020-08-30 10:51 | disposition home or self-care (01) ==
LOC: EC 07:02
DX: K29.70 Gastritis, unspecified, without bleeding (principal); E86.0 Dehydration; F17.200 Nicotine dependence, unspecified, uncomplicated; Z90.09 Acquired absence of other part of head and neck
CPT/HCPCS: 36415; 80053; 82150; 82550; 83605; 83690; 84484; 85025; 81001; 80320; 74018; 99284; 96374; 96375 ×2; 96361 ×3; J2405; J1885

== ENCOUNTER 2021-04-18 21:49 | Observation (INO) | payer BC, OTHER ==
[2021-04-18] MEDS ORDERED: PANTOPRAZOLE 40 MG/10 ML VIAL IVP STA (23:43)
--- NOTE | 2021-04-18 23:45 | ED ---
GI Bleed HPI - General Chief complaint: GI Bleed Stated complaint: Vomiting Time Seen by Provider: 04/18/21 23:20 Source: patient Mode of arrival: ambulatory Limitations: no limitations - History of Present Illness MD complaint: gross hematochezia Onset/Timin -: hour(s) Quality: cramping Consistency: intermittent Improves with: vomiting Worsens with: none Associated Symptoms: denies other symptoms Treatments Prior to Arrival: none - Related Data Previous Rx's Medication Instructions Recorded Pantoprazole Sodium [Protonix] 40 mg PO DAILY #14 tablet. 08/30/20 Allergies Allergy/AdvReac Type Severity Reaction Status Date / Time No Known Allergies Allergy Verified 04/18/21 22:16 Review of Systems ROS Statement: Those systems with pertinent positive or pertinent negative responses have been documented in the HPI. ROS Other: All systems not noted in ROS Statement are negative. Constitutional: Denies: fever, chills, weakness Respiratory: Denies: cough, dyspnea Cardiovascular: Denies: chest pain, palpitations, edema Gastrointestinal: Reports: abdominal pain, nausea, vomiting, diarrhea, he matemesis, hematochezia. Denies: constipation, melena Genitourinary: Denies: dysuria, hematuria, testicular pain Musculoskeletal: Denies: back pain Skin: Denies: rash Neurological: Denies: headache, weakness, numbness Hematological/Lymphatic: Denies: easy bleeding Past Medical History Past Medical History: No Reported History Additional Past Medical History / Comment(s): vertigo pancreatitis History of Any Multi-Drug Resistant Organisms: None Reported Past Surgical History: Tonsillectomy Past Anesthesia/Blood Transfusion Reactions: No Reported Reaction, Motion Sickness Past Psychological History: No Psychological Hx Reported Smoking Status: Current every day smoker Past Alcohol Use History: None Reported Past Drug Use History: None Reported - Past Family History Father Additional Family Medical History / Comment(s): Father has MS General Exam Limitations: no limitations General appearance: alert, in no apparent distress Head exam: Present: atraumatic, normocephalic Eye exam: Present: normal appearance. Absent: scleral icterus, conjunctival injection Neck exam: Present: normal inspection Respiratory exam: Present: normal lung sounds bilaterally. Absent: respiratory distress, wheezes, rales, rhonchi, stridor Cardiovascular Exam: Present: regular rate, normal rhythm, normal heart sounds. Absent: systolic murmur, diastolic murmur, rubs, gallop GI/Abdominal exam: Present: soft. Absent: distended, tenderness, guarding, rebound, rigid, mass, pulsatile mass Extremities exam: Present: normal inspection, normal capillary refill. Absent: pedal edema, calf tenderness Back exam: Present: normal inspection. Absent: CVA tenderness (R), CVA tenderness (L) Neurological exam: Present: alert Skin exam: Present: warm, dry, intact, normal color. Absent: rash Course Vital Signs 04/18/21 04/19/21 22:12 02:47 Temperature 98.0 F Pulse Rate 100 79 Respiratory 20 14 Rate Blood Pressure 117/70 126/45 O2 Sat by Pulse 100 99 Oximetry Medical Decision Making - Lab Data Result diagrams: 04/19/21 00:19 04/19/21 00:19 Lab Results 04/18/21 04/19/21 04/19/21 Range/Units 00:19 00:19 00:19 WBC 6.8 (3.8-10.6) k/uL RBC 3.57 L (4.30-5.90) m/uL Hgb 12.8 L (13.0-17.5) gm/dL Hct 36.1 L (39.0-53.0) % MCV 101.2 H (80.0-100.0) fL MCH 35.8 H (25.0-35.0) pg MCHC 35.4 (31.0-37.0) g/dL RDW 12.2 (11.5-15.5) % Plt Count 113 L (150-450) k/uL MPV 9.3 Neutrophils % 70 % Lymphocytes % 20 % Monocytes % 7 % Eosinophils % 0 % Basophils % 0 % Neutrophils # 4.8 (1.3-7.7) k/uL Lymphocytes # 1.4 (1.0-4.8) k/uL Monocytes # 0.5 (0-1.0) k/uL Eosinophils # 0.0 (0-0.7) k/uL Basophils # 0.0 (0-0.2) k/uL PT 10.8 (9.0-12.0) sec INR 1.0 (<1.2) APTT 23.9 (22.0-30.0) sec Sodium (137-145) mmol/L Potassium (3.5-5.1) mmol/L Chloride (98-107) mmol/L Carbon Dioxide (22-30) mmol/L Anion Gap mmol/L BUN (9-20) mg/dL Creatinine (0.66-1.25) mg/dL Est GFR (CKD-EPI)AfAm (>60 ml/min/1.73 sqM) Est GFR (CKD-EPI)NonAf (>60 ml/min/1.73 sqM) Glucose (74-99) mg/dL Plasma Lactic Acid Saeed (0.7-2.0) mmol/L Calcium (8.4-10.2) mg/dL Total Bilirubin (0.2-1.3) mg/dL AST (17-59) U/L ALT (4-49) U/L Alkaline Phosphatase (38-126) U/L Troponin I <0.012 (0.000-0.034) ng/mL Total Protein (6.3-8.2) g/dL Albumin (3.5-5.0) g/dL Blood Type Blood Type Confirm Blood Type Recheck Bld Type Recheck Status Antibody Screen Spec Expiration Date 04/19/21 04/19/21 04/19/21 Range/Units 00:19 00:19 00:30 WBC (3.8-10.6) k/uL RBC (4.30-5.90) m/uL Hgb (13.0-17.5) gm/dL Hct (39.0-53.0) % MCV (80.0-100.0) fL MCH (25.0-35.0) pg MCHC (31.0-37.0) g/dL RDW (11.5-15.5) % Plt Count (150-450) k/uL MPV Neutrophils % % Lymphocytes % % Monocytes % % Eosinophils % % Basophils % % Neutrophils # (1.3-7.7) k/uL Lymphocytes # (1.0-4.8) k/uL Monocytes # (0-1.0) k/uL Eosinophils # (0-0.7) k/uL Basophils # (0-0.2) k/uL PT (9.0-12.0) sec INR (<1.2) APTT (22.0-30.0) sec Sodium 136 L (137-145) mmol/L Potassium 4.6 (3.5-5.1) mmol/L Chloride 107 (98-107) mmol/L Carbon Dioxide 24 (22-30) mmol/L Anion Gap 5 mmol/L BUN 47 H (9-20) mg/dL Creatinine 0.75 (0.66-1.25) mg/dL Est GFR (CKD-EPI)AfAm >90 (>60 ml/min/1.73 sqM) Est GFR (CKD-EPI)NonAf >90 (>60 ml/min/1.73 sqM) Glucose 117 H (74-99) mg/dL Plasma Lactic Acid Saeed 1.0 (0.7-2.0) mmol/L Calcium 8.6 (8.4-10.2) mg/dL Total Bilirubin 0.5 (0.2-1.3) mg/dL AST 20 (17-59) U/L ALT 15 (4-49) U/L Alkaline Phosphatase 54 (38-126) U/L Troponin I (0.000-0.034) ng/mL Total Protein 6.0 L (6.3-8.2) g/dL Albumin 3.4 L (3.5-5.0) g/dL Blood Type A Positive Blood Type Confirm Blood Type Recheck No Previous Record Bld Type Recheck Status CABO Indicated Antibody Screen NEGATIVE Spec Expiration Date 04/22/2021 - 231804/19/21 Range/Units 00:30 WBC (3.8-10.6) k/uL RBC (4.30-5.90) m/uL Hgb (13.0-17.5) gm/dL Hct (39.0-53.0) % MCV (80.0-100.0) fL MCH (25.0-35.0) pg MCHC (31.0-37.0) g/dL RDW (11.5-15.5) % Plt Count (150-450) k/uL MPV Neutrophils % % Lymphocytes % % Monocytes % % Eosinophils % % Basophils % % Neutrophils # (1.3-7.7) k/uL Lymphocytes # (1.0-4.8) k/uL Monocytes # (0-1.0) k/uL Eosinophils # (0-0.7) k/uL Basophils # (0-0.2) k/uL PT (9.0-12.0) sec INR (<1.2) APTT (22.0-30.0) sec Sodium (137-145) mmol/L Potassium (3.5-5.1) mmol/L Chloride (98-107) mmol/L Carbon Dioxide (22-30) mmol/L Anion Gap mmol/L BUN (9-20) mg/dL Creatinine (0.66-1.25) mg/dL Est GFR (CKD-EPI)AfAm (>60 ml/min/1.73 sqM) Est GFR (CKD-EPI)NonAf (>60 ml/min/1.73 sqM) Glucose (74-99) mg/dL Plasma Lactic Acid Saeed (0.7-2.0) mmol/L Calcium (8.4-10.2) mg/dL Total Bilirubin (0.2-1.3) mg/dL AST (17-59) U/L ALT (4-49) U/L Alkaline Phosphatase (38-126) U/L Troponin I (0.000-0.034) ng/mL Total Protein (6.3-8.2) g/dL Albumin (3.5-5.0) g/dL Blood Type Blood Type Confirm A Positive Blood Type Recheck Bld Type Recheck Status Antibody Screen Spec Expiration Date - EKG Data -: EKG Interpreted by Me EKG shows normal: sinus rhythm (with PAC), axis (Normal), intervals (Normal), QRS complexes (Normal), ST-T waves (Normal) Rate: normal (Rate 77 bpm) Interpretation: normal EKG Disposition Clinical Impression: GIB (gastrointestinal bleeding) Disposition: ADMITTED IP TO THIS [facility] Condition: Fair Is patient prescribed a controlled substance at d/c from ED?: No
[2021-04-19 00:28] LABS: Basophils % (A) 0 %; Eosinophils % (A) 0 %; HCT 36.1 % (39.0-53.0); HGB 12.8 gm/dL (13.0-17.5); Lymphocytes # (A) 1.4 k/uL (1.0-4.8); Lymphocytes % (A) 20 %; MCH 35.8 pg (25.0-35.0); MCHC 35.4 g/dL (31.0-37.0); MCV 101.2 fL (80.0-100.0); Mean Platelet Volume 9.3; Monocytes # (A) 0.5 k/uL (0-1.0); Monocytes % (A) 7 %; Neutrophils # (A) 4.8 k/uL (1.3-7.7); Neutrophils % (A) 70 %; Platelet Count 113 k/uL (150-450); RBC 3.57 m/uL (4.30-5.90); RDW 12.2 % (11.5-15.5); WBC 6.8 k/uL (3.8-10.6)
[2021-04-19 00:41] LABS: Partial Thromboplastin Time 23.9 sec (22.0-30.0); Prothrombin Time 10.8 sec (9.0-12.0)
[2021-04-19 00:42] LABS: ALT 15 U/L (4-49); AST 20 U/L (17-59); African American GFR (CKD) >90 (>60 ml/min/1.73 sqM); Albumin 3.4 g/dL (3.5-5.0); Alkaline Phosphatase 54 U/L (38-126); Anion Gap 5 mmol/L; Blood Urea Nitrogen 47 mg/dL (9-20); Calcium 8.6 mg/dL (8.4-10.2); Carbon Dioxide 24 mmol/L (22-30); Chloride 107 mmol/L (98-107); Glucose 117 mg/dL (74-99); Non-African American GFR(CKD) >90 (>60 ml/min/1.73 sqM); Potassium 4.6 mmol/L (3.5-5.1); Sodium 136 mmol/L (137-145); Total Bilirubin 0.5 mg/dL (0.2-1.3)
[2021-04-19] MEDS ORDERED: NALOXONE 0.4 MG/ML 1 ML VIAL IV PRN (03:45)
[2021-04-19] MEDS ORDERED: MORPHINE SULFATE 4 MG/ML SYRINGE IV PRN (03:45)
--- NOTE | 2021-04-19 04:24 | CT ---
EXAMINATION TYPE: CT abdomen pelvis w con DATE OF EXAM: 04/19/2021 COMPARISON: 04/13/2015 HISTORY: GI bleeding. dark stool/vomitting bright red blood. prior on PACS CT DLP: 739.2 mGycm Automated exposure control for dose reduction was used. CONTRAST: Performed with IV Contrast, patient injected with 100ml mL of Isovue 300. Lung bases are clear. There is no pleural effusion. Heart size is normal. There is no pericardial eff usion. Liver spleen pancreas gallbladder and stomach appear intact. Bile ducts are nondilated. There is no adrenal mass. Kidneys show satisfactory contrast opacification. There is no hydronephrosi s. Ureters are not dilated. There is no retroperitoneal adenopathy. Appendix appears normal. Bladder distends smoothly. There is no inguinal hernia. There is no free fluid in the pelvis. There is no mesenteric edema. There is no ascites or free air. There is no bowel obstruction. There i s no evidence of a pelvic mass. There is mild atheromatous change in the abdominal aorta. The lumbar vertebrae have normal alignment. There is no compression fracture. Posterior elements are intact. The bony pelvis is intact. Hip joints appear intact. IMPRESSION: Negative CT scan abdomen and pelvis. Normal appendix.
[2021-04-19] MEDS: SODIUM CHLORIDE 0.9% 1,000 ML IV SCH ×2 (05:33→16:52)
[2021-04-19] MEDS: PANTOPRAZOLE 40 MG/10 ML VIAL IV SCH (07:38)
[2021-04-19 08:29] LABS: HCT 34.1 % (39.0-53.0); HGB 11.6 gm/dL (13.0-17.5); MCHC 34.2 g/dL (31.0-37.0); MCV 102.4 fL (80.0-100.0); Macrocytosis Slight; Platelet Count 100 k/uL (150-450); RBC 3.33 m/uL (4.30-5.90); RDW 12.9 % (11.5-15.5); WBC 4.5 k/uL (3.8-10.6)
--- NOTE | 2021-04-19 13:20 | XR ---
EXAMINATION TYPE: XR chest 1V portable DATE OF EXAM: 04/19/2021 COMPARISON: 05/05/2010 HISTORY: Covid TECHNIQUE: Single frontal view of the chest is obtained. FINDINGS: There is no focal air space opacity, pleural effusion, or pneumothorax seen. The cardiac silhouette size is within normal limits. The osseous structures are intact. IMPRESSION: No acute process.
[2021-04-19] MEDS ORDERED: ALPRAZolam 0.25 MG TAB PO PRN (14:20)
[2021-04-19] MEDS ORDERED: HYDROcodone/APAP 5-325MG 1 EACH TAB PO PRN (14:20)
--- NOTE | 2021-04-19 15:12 | HP ---
HISTORY AND PHYSICAL DATE OF SERVICE: 04/19/2021 CHIEF COMPLAINTS: GI bleed and gross hematochezia. HISTORY OF PRESENT ILLNESS: This 55-year-old gentleman with a past medical history of vertigo and history of tonsillectomy, otherwise not being followed by any primary physician in the outpatient setting, was complaining of incessant vomiting, hematemesis and hematochezia. Patient came to [facility] and was admitted for further evaluation and treatment. Surgical evaluation has been sought at this point. Hemoglobin was found to be 11.6. There is also some thrombocytopenia. COVID-19 was positive. Stool OB was positive. But the patient is not hypoxic at this time. The patient also had a CT scan of the abdomen and pelvis which I reviewed personally. It showed no acute abnormality. Chest x-ray was also done which I personally reviewed, and it showed no acute abnormality, either. There is no history of any fever, rigor or chills at this time. PAST MEDICAL HISTORY: History of vertigo, history of tonsillectomy. MEDICATIONS: None. ALLERGIES: NONE. FAMILY HISTORY: History of multiple in the family. SOCIAL HISTORY: History of smoking _ no history of alcohol intake. REVIEW OF SYSTEMS: ENT: No diminished hearing. No diminished vision. CARDIOVASCULAR SYSTEM: No angina, palpitations. RESPIRATORY SYSTEM: As mentioned earlier. GI: As mentioned earlier. : No dysuria. NERVOUS SYSTEM: No numbness, weakness. ALLERGY/IMMUNOLOGY: No asthma or hay fever. MUSCULOSKELETAL: As mentioned earlier. HEMATOLOGY/ONCOLOGY: No history of anemia. ENDOCRINE: No history of diabetes or hypothyroidism. CONSTITUTIONAL: As mentioned earlier. DERMATOLOGY: Negative. RHEUMATOLOGY: Negative. PSYCHIATRY: As mentioned earlier. PHYSICAL EXAMINATION: Patient alert and oriented x3. Pulse 76, blood pressure 105/69, respiration 20, temperature 98.2, pulse ox 99% on room air. HEENT: Conjunctivae normal. NECK: No jugular venous distention. CARDIOVASCULAR: S1, S2 muffled. RESPIRATION: Breath sounds diminished at the bases. A few scattered rhonchi. No crackles. ABDOMEN: Soft, nontender. No mass palpable. LEGS: No edema. No swelling. NERVOUS SYSTEM: Higher functions as mentioned earlier. Moves all 4 limbs. No focal motor or sensory deficit. LYMPHATICS: No lymph node palpable in neck, axillae or groin. SKIN: No ulcer, rash, bleeding. JOINTS: No active deforming arthropathy. LABS: WBC 4.2, hemoglobin 11.6, platelets are 100. Sodium 136. COVID-19 is positive. ASSESSMENT: 1. Acute gastrointestinal bleed. Rule out upper GI bleeding. 2. Acute blood loss anemia. 3. Thrombocytopenia. 4. Macrocytosis. 5. Hyponatremia. 6. History of nicotine dependence. 7. History of vertigo. 8. FULL CODE. RECOMMENDATIONS AND DISCUSSION: In this 55-year-old gentleman who presented with multiple complex medical issues, we will monitor the patient closely. Repeat serial hemoglobins. Protonix empirically. Surgical evaluation. Possible endoscopies. Prognosis guarded because of multiple complex medical issues. Further recommendations to follow. Discussed with the patient, who understands and agrees. MMODL / IJN: [id number] / MTDD
[2021-04-19] MEDS: NICOTINE 14MG/24HR PATCH TRANSDERM SCH (15:48)
[2021-04-19 17:09] LABS: HCT 30.7 % (39.0-53.0); HGB 10.6 gm/dL (13.0-17.5); MCHC 34.4 g/dL (31.0-37.0); MCV 101.5 fL (80.0-100.0); Mean Platelet Volume 9.6; RBC 3.02 m/uL (4.30-5.90); RDW 12.2 % (11.5-15.5); WBC 4.5 k/uL (3.8-10.6)
[2021-04-19 17:34] LABS: C Reactive Protein <0.5 mg/dL (<1.0); LDH 281 U/L (313-618)
[2021-04-19 17:58] LABS: Platelet Count 93 k/uL (150-450)
[2021-04-19 23:17] LABS: HCT 29.3 % (39.0-53.0); HGB 10.2 gm/dL (13.0-17.5); MCH 35.2 pg (25.0-35.0); MCHC 34.7 g/dL (31.0-37.0); MCV 101.4 fL (80.0-100.0); Mean Platelet Volume 9.3; RBC 2.89 m/uL (4.30-5.90); RDW 12.1 % (11.5-15.5); WBC 4.7 k/uL (3.8-10.6)
[2021-04-19 23:24] LABS: Platelet Count 88 k/uL (150-450)
[2021-04-20 05:35] LABS: HCT 28.9 % (39.0-53.0); HGB 9.9 gm/dL (13.0-17.5); MCH 34.7 pg (25.0-35.0); MCHC 34.3 g/dL (31.0-37.0); MCV 101.4 fL (80.0-100.0); Mean Platelet Volume 9.2; RBC 2.85 m/uL (4.30-5.90); RDW 12.2 % (11.5-15.5); WBC 4.8 k/uL (3.8-10.6)
[2021-04-20 05:39] LABS: Platelet Count 95 k/uL (150-450)
[2021-04-20] MEDS: PANTOPRAZOLE 40 MG/10 ML VIAL IV SCH (07:40)
[2021-04-20] MEDS: SODIUM CHLORIDE 0.9% 1,000 ML IV SCH (07:40)
[2021-04-20] MEDS: NICOTINE 14MG/24HR PATCH TRANSDERM SCH (07:40)
[2021-04-20 08:54] LABS: African American GFR (CKD) 123.1 (60.0-200.0); Albumin 3.4 g/dL (3.8-4.9); Anion Gap 7.5 mmol/L (10.00-18.00); BUN/Creat Ratio 30.29 Ratio (12.00-20.00); Blood Urea Nitrogen 21.2 mg/dL (9.0-27.0); Calcium 8.1 mg/dL (8.7-10.3); Carbon Dioxide 21.5 mmol/L (20.0-27.5); Globulin 1.7 g/dL (1.6-3.3); Non-African American GFR(CKD) 106.2 (60.0-200.0); Potassium 4.1 mmol/L (3.5-5.5); Total Bilirubin 0.4 mg/dL (0.30-1.20); Total Protein 5.1 g/dL (6.2-8.2)
--- NOTE | 2021-04-20 11:46 | P.GSCN ---
History of Present Illness Consult date: 04/19/21 Reason for Consult: GI bleed History of present illness: This is a 55-year-old male with history of GI bleed. Patient's complaints of some rectal bleeding he also had some hematemesis. Past Medical History Past Medical History: No Reported History Additional Past Medical History / Comment(s): vertigo pancreatitis 5 or 6 yrs ago Here at [facility] History of Any Multi-Drug Resistant Organisms: None Reported Past Surgical History: Tonsillectomy Past Anesthesia/Blood Transfusion Reactions: No Reported Reaction, Motion Sickness Past Psychological History: No Psychological Hx Reported Smoking Status: Current every day smoker Past Alcohol Use History: None Reported Past Drug Use History: None Reported - Past Family History Father Additional Family Medical History / Comment(s): Father has MS Medications and Allergies Home Medications Medication Instructions Recorded Confirmed Type No Known Home Medications 04/19/21 04/19/21 History Allergies Allergy/AdvReac Type Severity Reaction Status Date / Time No Known Allergies Allergy Verified 04/19/21 07:44 Surgical - Exam Vital Signs Temp Pulse Resp BP Pulse Ox 98.0 F 100 20 117/70 100 04/18/21 22:12 04/18/21 22:12 04/18/21 22:12 04/18/21 22:12 04/18/21 22:12 - General well developed, well nourished, no distress - Eyes PERRL - ENT normal pinna - Neck no masses - Respiratory normal expansion - Cardiovascular Rhythm: regular - Abdomen Abdomen: soft, non tender Results - Labs 04/20/21 05:01 04/20/21 05:01 Abnormal Lab Results - Last 24 Hours (Table) 04/19/21 04/19/21 04/19/21 Range/Units 16:36 16:36 23:05 RBC 3.02 L 2.89 L (4.30-5.90) m/uL Hgb 10.6 L 10.2 L (13.0-17.5) gm/dL Hct 30.7 L 29.3 L (39.0-53.0) % MCV 101.5 H 101.4 H (80.0-100.0) fL MCH 35.2 H (25.0-35.0) pg Plt Count 93 L 88 L (150-450) k/uL Chloride (96-109) mmol/L Anion Gap (10.00-18.00) mmol/L BUN/Creatinine Ratio (12.00-20.00) Ratio Calcium (8.7-10.3) mg/dL Ferritin 396.0 H (22.0-322.0) ng/mL Lactate Dehydrogenase 281 L (313-618) U/L Total Protein (6.2-8.2) g/dL Albumin (3.8-4.9) g/dL 04/20/21 04/20/21 Range/Units 05:01 05:01 RBC 2.85 L (4.30-5.90) m/uL Hgb 9.9 L (13.0-17.5) gm/dL Hct 28.9 L (39.0-53.0) % MCV 101.4 H (80.0-100.0) fL MCH (25.0-35.0) pg Plt Count 95 L (150-450) k/uL Chloride 111 H (96-109) mmol/L Anion Gap 7.50 L (10.00-18.00) mmol/L BUN/Creatinine Ratio 30.29 H (12.00-20.00) Ratio Calcium 8.1 L (8.7-10.3) mg/dL Ferritin (22.0-322.0) ng/mL Lactate Dehydrogenase (313-618) U/L Total Protein 5.1 L (6.2-8.2) g/dL Albumin 3.4 L (3.8-4.9) g/dL Diabetes panel 04/20/21 Range/Units 05:01 Sodium 140 (135-145) mmol/L Potassium 4.1 (3.5-5.5) mmol/L Chloride 111 H (96-109) mmol/L Carbon Dioxide 21.5 (20.0-27.5) mmol/L BUN 21.2 (9.0-27.0) mg/dL Creatinine 0.7 (0.6-1.5) mg/dL Glucose 92 (70-110) mg/dL Calcium 8.1 L (8.7-10.3) mg/dL AST 14 (14-35) U/L ALT 10 (10-49) U/L Alkaline Phosphatase 58 (41-126) U/L Total Protein 5.1 L (6.2-8.2) g/dL Albumin 3.4 L (3.8-4.9) g/dL Calcium panel 04/20/21 Range/Units 05:01 Calcium 8.1 L (8.7-10.3) mg/dL Albumin 3.4 L (3.8-4.9) g/dL Pituitary panel 04/20/21 Range/Units 05:01 Sodium 140 (135-145) mmol/L Potassium 4.1 (3.5-5.5) mmol/L Chloride 111 H (96-109) mmol/L Carbon Dioxide 21.5 (20.0-27.5) mmol/L BUN 21.2 (9.0-27.0) mg/dL Creatinine 0.7 (0.6-1.5) mg/dL Glucose 92 (70-110) mg/dL Calcium 8.1 L (8.7-10.3) mg/dL Adrenal panel 04/20/21 Range/Units 05:01 Sodium 140 (135-145) mmol/L Potassium 4.1 (3.5-5.5) mmol/L Chloride 111 H (96-109) mmol/L Carbon Dioxide 21.5 (20.0-27.5) mmol/L BUN 21.2 (9.0-27.0) mg/dL Creatinine 0.7 (0.6-1.5) mg/dL Glucose 92 (70-110) mg/dL Calcium 8.1 L (8.7-10.3) mg/dL Total Bilirubin 0.40 (0.30-1.20) mg/dL AST 14 (14-35) U/L ALT 10 (10-49) U/L Alkaline Phosphatase 58 (41-126) U/L Total Protein 5.1 L (6.2-8.2) g/dL Albumin 3.4 L (3.8-4.9) g/dL Assessment and Plan Assessment: GI bleed. We'll perform upper and lower endoscopy.
--- NOTE | 2021-04-20 11:47 | P.PN ---
Progress Note - Text Progress Note Date: 04/20/21 Patient is stable. He's had no further rectal bleeding in the hospital. On exam vital signs are stable. Abdomen soft. GI bleed. We'll perform upper and lower endoscopy tomorrow.
[2021-04-20 12:10] LABS: HGB 9.1 gm/dL (13.0-17.5); MCH 34.4 pg (25.0-35.0); MCHC 33.8 g/dL (31.0-37.0); MCV 101.9 fL (80.0-100.0); Mean Platelet Volume 9.5; RBC 2.64 m/uL (4.30-5.90); RDW 12.3 % (11.5-15.5); WBC 3.4 k/uL (3.8-10.6)
[2021-04-20 12:13] LABS: Platelet Count 84 k/uL (150-450)
[2021-04-20] MEDS ORDERED: PEG 3350-NA SULF,BICARB,CL/KCL 4,000 ML BOTTLE PO ONE (16:00)
--- NOTE | 2021-04-20 18:43 | PN ---
PROGRESS NOTE DATE OF SERVICE: 04/20/2021 This 55-year-old gentleman was admitted with a GI bleed. he is being closely monitored at this time. Endoscopy is planned by Surgery tomorrow. No chest pain. No palpitations. No fever. PHYSICAL EXAMINATION: Alert and oriented x3. Pulse 63, blood pressure 102/63, respirations 17, temperature 97.8, pulse ox 98% on room air. HEENT: Conjunctivae pale. Oral mucosa moist. NECK: No jugular venous distention. No lymph node enlargement. CARDIOVASCULAR: S1, S2, muffled. No S3, no S4, RESPIRATORY: Diminished breath sounds at the bases. ABDOMEN: Soft. LEGS: No edema, no swelling. NERVOUS SYSTEM: No focal deficits. LABS: Hemoglobin 9.1. ASSESSMENT: 1. Acute GI bleed, rule out upper gastrointestinal bleed. 2. Acute blood loss anemia. 3. Thrombocytopenia. 4. Macrocytosis. 5. Hyponatremia. 6. History of nicotine dependence. 7. History of vertigo. 8. FULL CODE. RECOMMENDATIONS: Recommend to continue current management, continue symptomatic treatment. Monitor hemoglobin closely. Otherwise, continue the proton pump inhibitors and repeat labs. Possible endoscopy by Dr. Ng tomorrow. Further recommendations to follow. MMODL / IJN: [id number] /
[2021-04-20 23:25] VITALS: RESP 18
[2021-04-21] MEDS: SODIUM CHLORIDE 0.9% 1,000 ML IV SCH ×2 (05:19→10:18)
[2021-04-21] MEDS: NICOTINE 14MG/24HR PATCH TRANSDERM SCH (07:37)
[2021-04-21] MEDS: PANTOPRAZOLE 40 MG/10 ML VIAL IV SCH (07:37)
[2021-04-21 10:11] VITALS: BP 95/56; PULSE 63; TEMP 97.8
[2021-04-21 11:15] LABS: BUN/Creat Ratio 20.37 Ratio (12.00-20.00)
[2021-04-21 11:16] LABS: African American GFR (CKD) 131.3 (60.0-200.0); Albumin 3.1 g/dL (3.8-4.9); Albumin/Globulin Ratio 1.94 (1.60-3.17); Anion Gap 8.1 mmol/L (10.00-18.00); Blood Urea Nitrogen 12.2 mg/dL (9.0-27.0); Calcium 7.9 mg/dL (8.7-10.3); Carbon Dioxide 22.9 mmol/L (20.0-27.5); Globulin 1.6 g/dL (1.6-3.3); Non-African American GFR(CKD) 113.3 (60.0-200.0); Total Bilirubin 0.3 mg/dL (0.30-1.20); Total Protein 4.6 g/dL (6.2-8.2)
[2021-04-21] MEDS ORDERED: IV FLUID CONTINUATION 1,000 ML IV ONE (11:16)
[2021-04-21] MEDS ORDERED: LIDOCAINE 1% INJ 10MG/ML (20 ML MDV) ONE (11:32)
[2021-04-21] MEDS ORDERED: PROPOFOL 10 MG/ML 20 ML VIAL IV ONE (11:32)
--- NOTE | 2021-04-21 11:57 | P.OP ---
Date of Procedure: 04/21/21 Preoperative Diagnosis: GI bleed Postoperative Diagnosis: Antral ulcer Normal colon Procedure(s) Performed: Colonoscopy Anesthesia: MAC Surgeon: Can Ng Pathology: other (Antral ulcer, antrum) Condition: stable Disposition: PACU Description of Procedure: The patient's placed on the endoscopy table in the lateral position. He received IV sedation. The gastroscope was placed oropharynx passed in the esophagus and stomach. Scope was then placed through the pylorus. The first and second portion duodenum appeared normal. Scope was brought back and the antrum there was an ulcer seen. There was a fibropurulent based the ulcer. There is no active bleeding seen a biopsy the ulcer was performed. The scope was retroflexed remainder stomach appeared normal. The GE junction was at 47 is. The distal esophagus appeared normal. Proximal esophagus. Normal. Scope withdrawn for patient. Next digital rectal exam was performed which revealed no abnormalities. Flexible colonoscope was then placed patient anus passed throughout the entire colon. The ileocecal valve was visualized. The cecum, ascending and transverse colon appeared normal. The descending and sigmoid colon appeared normal. The scope was brought back the rectum and this appeared normal. Scope withdrawn for patient. There is no blood seen in the GI tract. Presumed patient's previous GI bleed was due to his antral ulcer
[2021-04-21 13:58] LABS: HCT 22.8 % (39.6-50.0); HGB 7.7 g/dL (13.0-17.0); MCH 34.4 pg (27.0-32.0); MCHC 33.8 g/dL (32.0-37.0); MCV 101.8 fL (80.0-97.0); Mean Platelet Volume 12.1 fL (9.5-12.2); Platelet Count 70 X 10*3/uL (140-440); RBC 2.24 X 10*6/uL (4.40-5.60); RDW 12.3 % (11.5-14.5); WBC 3.92 X 10*3/uL (4.50-10.00)
[2021-04-21 14:06] LABS: Basophils # (A) 0.01 X 10*3/uL (0.00-0.10); Basophils % (A) 0.3 %; Eosinophils # (A) 0.02 X 10*3/uL (0.04-0.35); Eosinophils % (A) 0.5 %; Lymphocytes # (A) 1.72 X 10*3/uL (0.90-5.00); Lymphocytes % (A) 43.9 %; Monocytes # (A) 0.38 X 10*3/uL (0.20-1.00); Monocytes % (A) 9.7 %; Neutrophils # (A) 1.78 X 10*3/uL (1.80-7.70); Neutrophils % (A) 45.3 %
--- NOTE | 2021-04-21 20:26 | DS ---
DISCHARGE SUMMARY FINAL DIAGNOSES: 1. Acute GI bleed and upper GI bleeding, status post EGD showing antral ulcer. 2. Acute blood loss anemia. 3. Thrombocytopenia. 4. Microcytosis. 5. Hyponatremia. 6. History of nicotine dependence. 7. History of vertigo. 8. FULL CODE. DISCHARGE DISPOSITION: The patient will be discharged in stable condition with guarded prognosis. HISTORY OF PRESENT ILLNESS: This 55-year-old gentleman with a past medical history of multiple medical problems was admitted with acute GI bleed and the patient was found to have an antral ulcer through the EGD done by Dr. Ng. Otherwise, hemoglobin is stable around 7.7 at this time and the patient is stable. No further bleeding was noted. Patient is discharged home in stable condition with guarded prognosis. DISCHARGE ADVICE AND MEDICATIONS: 1. Diet is soft, bland. 2. Activity limited until followup. 3. Follow up with Dr. Moncada in 1 to 2 days, CBC and BMP. 4. Follow up with Dr. Ng as recommended. 5. Habitrol 21 daily. 6. Protonix 40 mg p.o. b.i.d. for . 7. Carafate 1 gram before meals and at bedtime. Once again, the patient will be discharged in stable condition with guarded prognosis. MMODL / IJN: [id number] /
== END 2021-04-21 14:40 | disposition home or self-care (01) ==
LOC: EC 21:49 → 4SSUR 04-19 03:45
PROVIDERS: ADMIT Hospitalist; ATTEND Hospitalist
DX: K25.4 Chronic or unspecified gastric ulcer with hemorrhage (principal); K29.50 Unspecified chronic gastritis without bleeding; U07.1 COVID-19; D62 Acute posthemorrhagic anemia; D69.6 Thrombocytopenia, unspecified; E87.1 Hypo-osmolality and hyponatremia; F17.200 Nicotine dependence, unspecified, uncomplicated; Z79.899 Other long term (current) drug therapy; Z82.69 Family history of other diseases of the musculoskeletal system and connective tissue
CPT/HCPCS: 99285; 43239; 45378; 96376 ×3; 96361 ×3; 96374; 36415; 93005; 86900; 86901; 85379; 88305; 80053 ×3; 82728; 83605; 83615; 84484; 85025 ×2; 85027 ×2; 85610; 85730; 86850; 86140; 82272; 88342; 87635; 71045; 74177; G0378 ×3; J2001; J2704; C9113 ×3; Q9967

== ENCOUNTER 2022-03-30 12:25 | Emergency (ER) | payer BC ==
[2022-03-30] MEDS ORDERED: ONDANSETRON 4 MG/2 ML VIAL IVP STA (15:45)
[2022-03-30] MEDS ORDERED: SODIUM CHLORIDE 0.9% 1,000 ML IV STA (15:45)
--- NOTE | 2022-03-30 16:19 | ED ---
General Adult HPI - General Chief complaint: Weakness Stated complaint: unable to eat, weakness Time Seen by Provider: 03/30/22 15:30 Source: patient Mode of arrival: ambulatory Limitations: no limitations - History of Present Illness Initial comments: Is a 56-year-old male presenting with chief complaint of abdominal pain and loss of appetite. Patient states that for the last 3 months he has had epigastric abdominal pain which is present when he is hungry and also when he eats too much. He has been trying to eat small amounts of food every hour or so. He states that he has had a decrease in appetite. Patient does not know if he has lost any weight. Patient does admit to generalized weakness. He states that yesterday he was vomiting for several hours, this is the first time this has happened with his symptoms. No diarrhea, hematochezia, melena. No hematemesis, chest pain, difficulty breathing, palpitations. No fever, chills, other pain. No headache, vision or hearing changes, neck pain or stiffness. - Related Data Previous Rx's Medication Instructions Recorded Pantoprazole [Protonix] 40 mg PO DAILY #20 tab 03/30/22 Allergies Allergy/AdvReac Type Severity Reaction Status Date / Time No Known Allergies Allergy Verified 03/30/22 16:21 Review of Systems ROS Statement: Those systems with pertinent positive or pertinent negative responses have been documented in the HPI. ROS Other: All systems not noted in ROS Statement are negative. Past Medical History Past Medical History: No Reported History Additional Past Medical History / Comment(s): vertigo pancreatitis 5 or 6 yrs ago Here at [facility] History of Any Multi-Drug Resistant Organisms: None Reported Past Surgical History: Tonsillectomy Past Anesthesia/Blood Transfusion Reactions: No Reported Reaction, Motion Sickness Past Psychological History: No Psychological Hx Reported Smoking Status: Current every day smoker Past Alcohol Use History: None Reported Past Drug Use History: None Reported - Past Family History Father Additional Family Medical History / Comment(s): Father has MS General Exam Limitations: no limitations General appearance: alert, in no apparent distress Head exam: Present: atraumatic, normocephalic, normal inspection Eye exam: Present: normal appearance Neck exam: Present: normal inspection, full ROM Respiratory exam: Present: normal lung sounds bilaterally. Absent: respiratory distress, wheezes, rales, rhonchi, stridor Cardiovascular Exam: Present: regular rate, normal rhythm, normal heart sounds. Absent: systolic murmur, diastolic murmur, rubs, gallop, clicks GI/Abdominal exam: Present: soft, tenderness (Mild right upper quadrant tenderness). Absent: distended, guarding, rebound, rigid Neurological exam: Present: alert, oriented X3, CN II-XII intact Psychiatric exam: Present: normal affect, normal mood Skin exam: Present: warm, dry, intact, normal color. Absent: rash Course Vital Signs 03/30/22 03/30/22 03/30/22 13:11 17:59 19:39 Temperature 98.2 F Pulse Rate 70 67 66 Respiratory 18 16 16 Rate Blood Pressure 149/92 138/97 130/88 O2 Sat by Pulse 96 99 98 Oximetry 03/30/22 03/30/22 20:05 21:04 Temperature 98.0 F Pulse Rate 65 Respiratory 18 Rate Blood Pressure 130/85 O2 Sat by Pulse 99 Oximetry EKG Findings - EKG Comments: EKG Findings:: Sinus bradycardia ventricular rate 56. VT interval 145. QRS 100. QT 427. QTC 419. No changes when compared to previous EKG. EKG interpreted by myself. Medical Decision Making - Medical Decision Making Patient is a 56-year-old male presenting with chief complaint of epigastric pain and decreased appetite. Symptoms have been ongoing for several months. On physical examination abdomen is soft, nontender, nondistended. Lab work shows no leukocytosis or anemia. Coags are WNL. Sodium is 135. Creatinine is 0.64. Glucose is 118. CT shows inflammation changes around the gastric antrum and duodenum that may represent peptic ulcers. There is no evidence of free air at this time to suggest perforation an EGD is recommended. Patient is educated on these findings. He is started on Protonix and educated on supportive treatment for peptic ulcer disease. Encouraged to follow-up with PCP and GI specialist, provided recommendations for both. Follow-up with PCP. Report back to ER with any new or worsening symptoms. Discussed return parameters and answered all questions. Patient conveyed verbal understanding and agreed to the plan. I discussed this case in detail with my attending Dr. Merchant - Lab Data Result diagrams: 03/30/22 17:42 03/30/22 17:42 Lab Results 12/26/22 12/26/22 12/26/22 Range/Units 17:42 17:42 17:42 WBC 9.0 (3.8-10.6) k/uL RBC 5.12 (4.30-5.90) m/uL Hgb 17.5 (13.0-17.5) gm/dL Hct 49.8 (39.0-53.0) % MCV 97.2 (80.0-100.0) fL MCH 34.3 (25.0-35.0) pg MCHC 35.3 (31.0-37.0) g/dL RDW 13.5 (11.5-15.5) % Plt Count 201 (150-450) k/uL MPV 8.4 Neutrophils % 73 % Lymphocytes % 19 % Monocytes % 5 % Eosinophils % 0 % Basophils % 1 % Neutrophils # 6.6 (1.3-7.7) k/uL Lymphocytes # 1.7 (1.0-4.8) k/uL Monocytes # 0.4 (0-1.0) k/uL Eosinophils # 0.0 (0-0.7) k/uL Basophils # 0.1 (0-0.2) k/uL PT 10.5 (9.0-12.0) sec INR 1.0 (<1.2) APTT 22.7 (22.0-30.0) sec Sodium (137-145) mmol/L Potassium (3.5-5.1) mmol/L Chloride (98-107) mmol/L Carbon Dioxide (22-30) mmol/L Anion Gap mmol/L BUN (9-20) mg/dL Creatinine (0.66-1.25) mg/dL Est GFR (CKD-EPI)AfAm (>60 ml/min/1.73 sqM) Est GFR (CKD-EPI)NonAf (>60 ml/min/1.73 sqM) Glucose (74-99) mg/dL Plasma Lactic Acid Saeed (0.7-2.0) mmol/L Calcium (8.4-10.2) mg/dL Phosphorus (2.5-4.5) mg/dL Magnesium (1.6-2.3) mg/dL Total Bilirubin (0.2-1.3) mg/dL AST (17-59) U/L ALT (4-49) U/L Alkaline Phosphatase (38-126) U/L Troponin I (0.000-0.034) ng/mL Total Protein (6.3-8.2) g/dL Albumin (3.5-5.0) g/dL Amylase (30-110) U/L Lipase (23-300) U/L TSH (0.465-4.680) mIU/L Urine Color Yellow Urine Appearance Clear (Clear) Urine pH 6.0 (5.0-8.0) Ur Specific [place] 1.023 (1.001-1.035) Urine Protein Trace H (Negative) Urine Glucose (UA) Negative (Negative) Urine Ketones Trace H (Negative) Urine Blood Moderate H (Negative) Urine Nitrite Negative (Negative) Urine Bilirubin Negative (Negative) Urine Urobilinogen 6.0 (<2.0) mg/dL Ur Leukocyte Esterase Negative (Negative) Urine RBC 24 H (0-5) /hpf Urine WBC 4 (0-5) /hpf Urine Mucus Many H (None) /hpf 03/30/22 03/30/22 03/30/22 Range/Units 17:42 17:42 17:42 WBC (3.8-10.6) k/uL RBC (4.30-5.90) m/uL Hgb (13.0-17.5) gm/dL Hct (39.0-53.0) % MCV (80.0-100.0) fL MCH (25.0-35.0) pg MCHC (31.0-37.0) g/dL RDW (11.5-15.5) % Plt Count (150-450) k/uL MPV Neutrophils % % Lymphocytes % % Monocytes % % Eosinophils % % Basophils % % Neutrophils # (1.3-7.7) k/uL Lymphocytes # (1.0-4.8) k/uL Monocytes # (0-1.0) k/uL Eosinophils # (0-0.7) k/uL Basophils # (0-0.2) k/uL PT (9.0-12.0) sec INR (<1.2) APTT (22.0-30.0) sec Sodium 135 L (137-145) mmol/L Potassium 4.6 (3.5-5.1) mmol/L Chloride 103 (98-107) mmol/L Carbon Dioxide 25 (22-30) mmol/L Anion Gap 7 mmol/L BUN 10 (9-20) mg/dL Creatinine 0.64 L (0.66-1.25) mg/dL Est GFR (CKD-EPI)AfAm >90 (>60 ml/min/1.73 sqM) Est GFR (CKD-EPI)NonAf >90 (>60 ml/min/1.73 sqM) Glucose 118 H (74-99) mg/dL Plasma Lactic Acid Saeed 1.3 (0.7-2.0) mmol/L Calcium 9.2 (8.4-10.2) mg/dL Phosphorus 3.8 (2.5-4.5) mg/dL Magnesium 2.2 (1.6-2.3) mg/dL Total Bilirubin 1.3 (0.2-1.3) mg/dL AST 24 (17-59) U/L ALT 19 (4-49) U/L Alkaline Phosphatase 137 H (38-126) U/L Troponin I <0.012 (0.000-0.034) ng/mL Total Protein 7.7 (6.3-8.2) g/dL Albumin 4.4 (3.5-5.0) g/dL Amylase 36 (30-110) U/L Lipase 30 (23-300) U/L TSH 0.768 (0.465-4.680) mIU/L Urine Color Urine Appearance (Clear) Urine pH (5.0-8.0) Ur Specific [place] (1.001-1.035) Urine Protein (Negative) Urine Glucose (UA) (Negative) Urine Ketones (Negative) Urine Blood (Negative) Urine Nitrite (Negative) Urine Bilirubin (Negative) Urine Urobilinogen (<2.0) mg/dL Ur Leukocyte Esterase (Negative) Urine RBC (0-5) /hpf Urine WBC (0-5) /hpf Urine Mucus (None) /hpf Disposition Clinical Impression: Peptic ulcer Disposition: HOME SELF-CARE Condition: Good Instructions (If sedation given, give patient instructions): Peptic Ulcer (ED) Additional Instructions: Follow-up with PCP and GI specialist. Report back to ER with any new or worsening symptoms. Take medication as prescribed. Prescriptions: Pantoprazole [Protonix] 40 mg PO DAILY #20 tab Is patient prescribed a controlled substance at d/c from ED?: No Referrals: None,Stated [Primary Care Provider] - 1-[address] [facility] [NON-STAFF] - 1-2 days Ofe Bell MD [STAFF PHYSICIAN] - 1-2 days Time of Disposition: 20:23
--- NOTE | 2022-03-30 16:22 | XR ---
EXAMINATION TYPE: XR chest 2V DATE OF EXAM: 03/30/2022 4:16 PM COMPARISON: Chest radiographs from 04/19/2021 TECHNIQUE: XR chest 2V Frontal and lateral views of the chest. CLINICAL INDICATION:Male, 56 years old with history of Weakness; FINDINGS: Lungs/Pleura: There is no evidence of pleural effusion, focal consolidation, or pneumothorax. Pulmonary vascularity: Unremarkable. Heart/mediastinum: Cardiomediastinal silhouette is unremarkable. Musculoskeletal: No acute osseous pathology. IMPRESSION: No acute cardiopulmonary disease/process.
[2022-03-30 17:59] LABS: Basophils # (A) 0.1 k/uL (0-0.2); Basophils % (A) 1 %; Eosinophils % (A) 0 %; HCT 49.8 % (39.0-53.0); HGB 17.5 gm/dL (13.0-17.5); Lymphocytes # (A) 1.7 k/uL (1.0-4.8); Lymphocytes % (A) 19 %; MCH 34.3 pg (25.0-35.0); MCHC 35.3 g/dL (31.0-37.0); MCV 97.2 fL (80.0-100.0); Mean Platelet Volume 8.4; Monocytes # (A) 0.4 k/uL (0-1.0); Monocytes % (A) 5 %; Neutrophils # (A) 6.6 k/uL (1.3-7.7); Neutrophils % (A) 73 %; Platelet Count 201 k/uL (150-450); RBC 5.12 m/uL (4.30-5.90); RDW 13.5 % (11.5-15.5)
[2022-03-30 18:03] LABS: Appearance,Urine Clear (Clear); Bilirubin,Urine Negative (Negative); Blood,Urine Moderate (Negative); Color,Urine Yellow; Glucose,Urine (UA) Negative (Negative); Ketones,Urine Trace (Negative); Leukocyte Esterase,Urine Negative (Negative); Mucus,Urine Many /hpf; Nitrite,Urine Negative (Negative); Protein,Urine Trace (Negative); RBC,Urine 24 /hpf (0-5); Specific Gravity,Urine 1.023 (1.001-1.035); WBC,Urine 4 /hpf (0-5)
[2022-03-30 18:10] LABS: Partial Thromboplastin Time 22.7 sec (22.0-30.0); Prothrombin Time 10.5 sec (9.0-12.0)
[2022-03-30 18:23] LABS: ALT 19 U/L (4-49); AST 24 U/L (17-59); African American GFR (CKD) >90 (>60 ml/min/1.73 sqM); Albumin 4.4 g/dL (3.5-5.0); Alkaline Phosphatase 137 U/L (38-126); Amylase 36 U/L (30-110); Anion Gap 7 mmol/L; Blood Urea Nitrogen 10 mg/dL (9-20); Calcium 9.2 mg/dL (8.4-10.2); Carbon Dioxide 25 mmol/L (22-30); Chloride 103 mmol/L (98-107); Glucose 118 mg/dL (74-99); Lipase 30 U/L (23-300); Magnesium 2.2 mg/dL (1.6-2.3); Non-African American GFR(CKD) >90 (>60 ml/min/1.73 sqM); Phosphorus 3.8 mg/dL (2.5-4.5); Potassium 4.6 mmol/L (3.5-5.1); Sodium 135 mmol/L (137-145); Total Bilirubin 1.3 mg/dL (0.2-1.3); Total Protein 7.7 g/dL (6.3-8.2)
[2022-03-30] MEDS ORDERED: KETOROLAC 15 MG/ML 1 ML VIAL IVP STA (19:42)
[2022-03-30] MEDS ORDERED: METOCLOPRAMIDE 5 MG/ML 2 ML VIAL IVP STA (19:42)
--- NOTE | 2022-03-30 20:00 | CT ---
EXAMINATION TYPE: CT abdomen pelvis w con CT DLP: 998.4 mGycm, Automated exposure control for dose reduction was used. DATE OF EXAM: 03/30/2022 7:07 PM COMPARISON: Multiple CTs 04/13/2015, 04/19/2021. CLINICAL INDICATION:Male, 56 years old with history of epigastric abdominal pain; TECHNIQUE: Axial CT of the abdomen and pelvis. Sagittal and coronal reformats were created on a [employer] workstation. Contrast used:100ml mL of Isovue 300 with IV Contrast, Oral contrast used: without Oral Contrast FINDINGS: LOWER CHEST: Heart is mildly enlarged for size. ABDOMEN LIVER: Diffusely hypoattenuating parenchyma. GALLBLADDER AND BILE DUCTS: Unremarkable. PANCREAS: Unremarkable. SPLEEN: Unremarkable. ADRENAL GLANDS: Lipid rich adrenal adenomas, left measuring up to 1.2 cm and on the right measuring u p to 1.1 cm. KIDNEYS AND URETERS: No evidence of hydronephrosis or renal calculus. The ureters are unremarkable. PELVIS BLADDER: Unremarkable REPRODUCTIVE: Unremarkable. ABDOMEN & PELVIS STOMACH AND BOWEL: Mild Fat stranding changes are seen around thee duodenum and gastric antrum. Multi ple outpouchings into the gastric wall suggested including series 201 image 29 and series 201 image 2 6. No evidence of perforation. No evidence of bowel obstruction. Appendix is normal. PERITONEUM: No evidence of pneumoperitoneum or free fluid. VASCULATURE: No evidence of aortic aneurysm. MUSCULOSKELETAL: No acute osseous abnormalities LYMPH NODES: No gross evidence for lymphadenopathy. SOFT TISSUE/ABDOMINAL WALL: Unremarkable IMPRESSION: 1. Inflammation changes around the gastric antrum and duodenum correlate for risk factors for peptic ulcers. No evidence of free air at this time to suggest perforation. EGD recommended. 2. Bilateral adrenal glands nodules most consistent with adrenal glands lipid rich adenomas when com paring to prior in 2016 3. Hepatic steatosis. 4. Mild cardiomegaly.
[2022-03-30 20:05] VITALS: BP 130/85; PULSE 65; RESP 18
[2022-03-30 21:06] VITALS: TEMP 98
== END 2022-03-30 21:04 | disposition home or self-care (01) ==
LOC: EC 12:25
DX: K26.9 Duodenal ulcer, unspecified as acute or chronic, without hemorrhage or perforation (principal); K25.9 Gastric ulcer, unspecified as acute or chronic, without hemorrhage or perforation; F17.200 Nicotine dependence, unspecified, uncomplicated
CPT/HCPCS: 36415; 93005; 80053; 82150; 83605; 83690; 83735; 84100; 84443; 84484; 85025; 85610; 85730; 81001; 71046; 74177; 99285; 96374; 96375 ×2; 96361; J2765; J2405; J1885; Q9967